=== PATIENT | female | born 1995 | race Caucasian/White ===

== ENCOUNTER 2017-03-14 19:20 | Emergency (ER) | END 2017-03-15 00:07 | disposition home or self-care (01) ==

== ENCOUNTER 2017-09-04 17:04 | Emergency (ER) | END 2017-09-04 21:27 | disposition home or self-care (01) ==

== ENCOUNTER 2018-03-23 18:40 | Emergency (ER) | payer SELFPAY ==
[~2018-03-23] VITALS: Ht 154.9 cm; Wt 78.8 kg
[~2018-03-23 18:40] MED LIST: ACET1TAB40 PO; FAMO-96 PO; IBUP-1542 PO; SLOWFE PO
[2018-03-23 18:44] VITALS: BP 126/76; PULSE 78; RESP 18; Ht 154.9 cm; Wt 78.8 kg
== END 2018-03-23 22:15 | disposition left against medical advice (07) ==
LOC: E/R 18:40
DX: Z53.21 Procedure and treatment not carried out due to patient leaving prior to being seen by health care provider (principal)

== ENCOUNTER 2018-03-29 00:24 | Emergency (ER) | payer OTHER ==
[~2018-03-29] VITALS: Ht 154.9 cm; Wt 78.3 kg
[2018-03-29 00:27] VITALS: Ht 154.9 cm; Wt 78.3 kg
[2018-03-29] MEDS ORDERED: KETOROLAC 30 MG INJ IM STA (02:22)
[2018-03-29] MEDS ORDERED: IBUP-1542 PO (03:10)
[2018-03-29] MEDS ORDERED: BACL10TA PO (03:10)
--- NOTE | 2018-03-29 03:20 | ERD ---
ER Documentation Chief Complaint Chief Complaint chronic back pain worse today ongoing for a week HPI Patient is a 23-year-old female who presents to the ER for concerns of lower back pain times 1 week. Patient states approximate 1 week ago she lifted a heavy pot of beans at work. Patient states this is a work comp related injury. Since that time patient has had intermittent back pain. Patient states pain is localized to her left lower back and is radiating now down her left leg. Patient states pain is worse with positional changes. Patient denies any saddle anesthesia, urinary incontinence or stool incontinence. Patient denies any dysuria, frequency, urgency or hematuria. Patient denies abdominal pain. Patient denies any chest pain or shortness of breath. Patient denies any drug use. ROS All systems reviewed and are negative except as per history of present illness. Medications Home Meds Active Scripts Ibuprofen* (Motrin*) 600 Mg Tab, 600 MG PO Q6, #30 TAB Prov:JASEN YBARRA PA-C 03/29/18 Baclofen* (Baclofen*) 10 Mg Tablet, 10 MG PO Q8, #15 TAB Prov:JASEN YBARRA PA-C 03/29/18 Famotidine* (Pepcid*) 20 Mg Tablet, 20 MG PO BID for 7 Days, #14 TAB Prov:MARYLOU SEAY MD 09/04/17 Acetaminophen with Codeine (Acetaminophen-Cod #3 Tablet) 1 Each Tablet, 1 TAB PO Q6H PRN for PAIN, #7 TAB Prov:MARYLOU SEAY MD 09/04/17 Ibuprofen* (Ibuprofen*) 600 Mg Tablet, 600 MG PO Q6, #20 TAB 0 Refills Prov:JORY RAO MD 09/25/15 Ferrous Sulfate* (Slow Fe*) 142 Mg Tabsr, 142 MG PO BID, #120 TAB 2 Refills Prov:JORY RAO MD 09/25/15 Allergies Allergies: Coded Allergies: vancomycin (Verified Allergy, Unknown, 03/23/18) PMhx/Soc Medical and Surgical Hx: pt denies Medical Hx, pt denies Surgical Hx History of Surgery: No Anesthesia Reaction: No Hx Neurological Disorder: No Hx Respiratory Disorders: No Hx Cardiac Disorders: No Hx Psychiatric Problems: No Hx Miscellaneous Medical Probl: No Hx Alcohol Use: No Hx Substance Use: No Hx Tobacco Use: No Smoking Status: Never smoker FmHx Family History: No diabetes Physical Exam Vitals Vital Signs Date Temp Pulse Resp B/P (MAP) Pulse Ox O2 O2 Flow FiO2 Time Delivery Rate 03/29/18 100.0 78 20 118/75 99 00:27 (89) Physical Exam GENERAL: Well-developed, well-nourished female. Appears in no acute distress. HEAD: Normocephalic, atraumatic. EYES: Pupils are equally reactive bilaterally. EOMs grossly intact. No conjunctival erythema. NECK: Supple. No meningismus. Normal range of motion of the neck. LUNG: Clear to auscultation bilaterally. No rhonchi, wheezing, rales or coarse breath sounds. HEART: Regular rate and rhythm. No murmurs, rubs or gallops. ABDOMEN: No pulsatile masses. Soft, nontender, and nondistended. Positive bowel sounds in all four quadrants. No rebound tenderness, no guarding. (-) McBurney's point tenderness. No CVA tenderness. BACK: No midline tenderness. Tender to palpation over the left lumbar mj fiona muscles. Positive straight leg raise on the left per EXTREMITIES: Equal pulses bilaterally. No peripheral clubbing, cyanosis or edema. No unilateral leg swelling. NEUROLOGIC: Alert and oriented. Moving all four extremities without any difficulty. Normal speech. Steady gait. SKIN: Normal color. Warm and dry. No rashes or lesions. Results 24 hrs Laboratory Tests Test 03/29/18 02:43 POC Beta HCG, Qualitative NEGATIVE Current Medications Medications Dose Sig/Lucille Start Time Status Last (Trade) Ordered Route PRN Stop Time Admin Dose Reason Admin Ketorolac 30 mg ONCE STAT 03/29/18 DC 03/29/18 Tromethamine IM 02:22 02:54 (Toradol) 03/29/18 02:23 Procedures/MDM MEDICAL DECISION MAKING: This is a 23-year-old female presents to the ER for concerns of lower back pain radiating down her left leg times 1 week after lifting a heavy pot of beans at work. Vital signs were reviewed. Patient was afebrile. Patient denied any saddle anesthesia, urinary incontinence, bowel incontinence, drug use. Patient was given Toradol for her pain. At this time, patient presentation was consistent with a lumbar strain and sciatica. Low suspicion for cauda equine syndrome, spinal fractures, epidural abscess, spinal metastases, osteomyelitis, aortic dissection, ruptured or leaking AA, DJD, sciatica, , ectopic pyelonephritis or nephrolithiasis. Patient was nontoxic, [id number] prior to discharge. PRESCRIPTIONS: Ibuprofen Baclofen Patient advised not to take baclofen when driving or operating any machinery. DISCHARGE: At this time, patient is stable for discharge and outpatient management. RICE therapy and ROM exercises were advised to avoid stiffness. I have instructed the patient to follow-up with his/her primary care physician in 1-2 days. I have discussed with the patient the possibility of needing to see an research laboratory specialist for further workup and imaging if the pain persists. I have instructed the patient to promptly return to the ER for any new or worsening symptoms including increased pain, swelling, warmth, urinary incontinence, stool incontinence, weakness or numbness. The patient and/or family expressed understanding of and agreement with this plan. All questions were answered. Home care instructions were provided. Disclaimer: Inadvertent spelling and grammatical errors are likely due to EHR/dictation software use and do not reflect on the overall quality of patient care. Also, please note that the electronic time recorded on this note does not necessarily reflect the actual time of the patient encounter. Departure Diagnosis: Primary Impression: Lumbar strain Condition: Fair Patient Instructions: Causes of Lumbar (Low Back) Pain Additional Instructions: No driving or operating machinery when taking baclofen. Call your primary care doctor TOMORROW for an appointment during the next 1-2 days.See the doctor sooner or return here if your condition worsens before your appointment time. JASEN YBARRA PA-C Mar 29, 2018 03:20
[2018-03-29 03:21] VITALS: BP 105/67; PULSE 83; RESP 16
== END 2018-03-29 04:06 | disposition home or self-care (01) ==
LOC: FTE 00:24
DX: S39.012A Strain of muscle, fascia and tendon of lower back, initial encounter (principal); X50.0XXA Overexertion from strenuous movement or load, initial encounter; Y92.89 Other specified places as the place of occurrence of the external cause
CPT/HCPCS: 81025; 96372; 99284; J1885